=== PATIENT | male | born 1995 | race Caucasian/White ===

== ENCOUNTER 2022-07-14 14:44 | Outpatient (RCR) | payer OTHER ==
[~2022-07-14 14:44] MED LIST: NORCO 325 MG-51 TAB PO
== END 2022-07-30 | disposition home or self-care (01) ==
LOC: WSOH
DX: S01.81XA Laceration without foreign body of other part of head, initial encounter (principal); Y99.0 Civilian activity done for income or pay; Z90.49 Acquired absence of other specified parts of digestive tract